=== PATIENT | female | born 1995 | race Caucasian/White ===

== ENCOUNTER 2017-04-16 11:45 | Emergency (ER) | payer OTHER ==
[2017-04-16] MEDS ORDERED: Acetaminophen 500 MG TAB ONE (12:38)
--- NOTE | 2017-04-16 12:47 | RAD ---
FACIAL BONES 3 VIEWS: HISTORY: Fall with injury to face. FINDINGS: Paranasal sinuses are well aerated and appear clear. Orbits appear intact. Zygoma appear intact. M andible appears intact. IMPRESSION: No evidence of facial bone fracture identified. POS: SHELL
[2017-04-16] MEDS ORDERED: Succinylcholine Chloride 20 MG/ML 10 ml SYRINGE FS ONE (13:02)
== END 2017-04-16 13:11 | disposition home or self-care (01) ==
LOC: ERS 11:45
DX: S00.33XA Contusion of nose, initial encounter (principal); J45.909 Unspecified asthma, uncomplicated; F41.9 Anxiety disorder, unspecified; F32.9 Major depressive disorder, single episode, unspecified; G43.909 Migraine, unspecified, not intractable, without status migrainosus; Z79.899 Other long term (current) drug therapy; W17.89XA Other fall from one level to another, initial encounter
CPT/HCPCS: 70150